=== PATIENT | female | born 1965 | race Caucasian/White ===

== ENCOUNTER 2019-07-17 21:18 | Emergency (ER) | payer MEDICAID, MEDICARE, OTHER ==
[~2019-07-17] VITALS: Ht 167.6 cm; Wt 77.1 kg
[2019-07-17] MEDS ORDERED: ACCU-CHEK COMFORT CURVE STRIP VI ONE (21:45)
[2019-07-17] MEDS ORDERED: SODIUM CHLORIDE 0.9% 1,000 ML IVB ONE (21:47)
[2019-07-17 22:44] LABS: Urine Bacteria MANY /hpf (None Seen); Urine Blood Negative /uL (Negative); Urine Hyaline Cast MOD /lpf (0 - 2); Urine Mucus FEW (None Seen); Urine Specific Gravity 1.018 (1.001-1.035); Urine WBC 9 /hpf (0 - 5)
[2019-07-17 22:51] LABS: Albumin 3.6 g/dL (3.4-5.0); Anion Gap 5 (5-15); Blood Alcohol < 3.0 mg/dL (0-5); Blood Urea Nitrogen 20 mg/dL (7-18); Carbon Dioxide 27 mmol/L (21-32); Chloride 105 mmol/L (98-107); Glucose 120 mg/dL (74-106); Magnesium 2.4 mg/dL (1.6-2.6); Mean Corpuscular Hemoglobin 23.3 pg (28.0-32.0); Potassium 3.7 mmol/L (3.5-5.1); Salicylate < 1.7 mg/dL (2.8-20.0); Sodium 137 mmol/L (136-145)
[2019-07-17 22:53] LABS: Acetaminophen < 2.0 ug/mL (10-30); BUN/Creatinine Ratio 16.4; GFR African American 59 mL/min; GFR Non-African American 49 mL/min
[2019-07-17 22:55] LABS: Alanine Aminotransferase 30 U/L (13-56); Alkaline Phosphatase 114 U/L (45-117); Aspartate Aminotransferase 36 U/L (15-37); Bilirubin, Total 0.2 mg/dL (0.2-1.0); Total Protein 8.1 g/dL (6.4-8.2)
[2019-07-17 22:57] LABS: Mean Corpuscular Hgb Conc. 29.8 g/dL (32.0-36.0); Mean Corpuscular Volume 78.1 fL (80.0-100.0); Platelet Count (auto) 312 10^3/uL (140-450); Red Blood Cells 4.74 10^6/uL (4.0-5.20); Red Cell Distribution Width 16.3 % (11.8-14.3); White Blood Cell 27.8 10^3/uL (4.4-10.8)
[2019-07-17 23:07] LABS: Alcohol, Urine < 3.0 mg/dL (0-5); Amphetamine Screen, Urine NEGATIVE (NEGATIVE); Barbiturate Scree,Urine NEGATIVE (NEGATIVE); Benzodiazephine Screen, Urine NEGATIVE (NEGATIVE); Cannabinoid Screen, Urine NEGATIVE (NEGATIVE); Cocaine Screen, Urine NEGATIVE (NEGATIVE); Opiate Scree,Urine POSITIVE (NEGATIVE); Phencyclidine Screen, Urine NEGATIVE (NEGATIVE)
[2019-07-17 23:16] LABS: Basophils % (manual) 0 (0.0-2.0); Blast Cells 0; Eosinophils % (manual) 0 (0-7); Metamyelocytes % 0; Myelocytes % 0; Promyelocytes % 0; Reactive Lymphocytes 0
[2019-07-17] MEDS ORDERED: CEFTRIAXONE SODIUM 2 GM in D5W 5% 50 ML IV ONE (23:30)
[2019-07-17 23:32] LABS: Band Neutrophils % (manual) 2; Lymphocytes % (manual) 7 (10.0-50.0); Monocytes % (manual) 6 (0-12)
[2019-07-17] MEDS ORDERED: cefTRIAXone 1GM/50ML D5W 100 ML IV ONE (23:47)
[2019-07-18 01:00] VITALS: BP 107/66
== END 2019-07-18 03:00 | disposition home or self-care (01) ==
LOC: EDBD 21:18 → ER 21:21
DX: T50.7X5A Adverse effect of analeptics and opioid receptor antagonists, initial encounter (principal); R41.82 Altered mental status, unspecified; N39.0 Urinary tract infection, site not specified; J32.9 Chronic sinusitis, unspecified; Y92.9 Unspecified place or not applicable
CPT/HCPCS: 36415; 70450; 71045; 80053; 80307; 80320; 80329; 81001; 82962; 83735; 85007; 85027; 93005; 96361; 96365; 99285; J0696; J7030; J7060